=== PATIENT | female | born 1985 | race Caucasian/White ===

== ENCOUNTER 2024-05-08 20:19 | Emergency (ER) | payer SELFPAY ==
[~2024-05-08] VITALS: Ht 154.9 cm; Wt 72.6 kg
[2024-05-08 20:30] VITALS: BP 139/115; PULSE 97; RESP 18; TEMP 98.3; O2SAT 98
--- NOTE | 2024-05-08 20:37 | NUR ---
urine sample @specimen tray, ambulated to lobby after triage
[2024-05-08] MEDS: NACL 0.9% 1,000 ML IV ONE (21:09)
[2024-05-08] MEDS: ONDANSETRON 4 MG/2 ML VIAL IVP ONE ×2 (21:10→22:37)
[2024-05-08] MEDS: MORPHINE SULFATE 4 MG/ML SYR IVP ONE ×2 (21:13→22:15)
[2024-05-08 21:35] LABS: ANION GAP 12.2 (8-16); CALCIUM 9.3 mg/dL (8.5-10.1); CARBON DIOXIDE 25.8 mmol/L (21-32); CREATININE 0.8 mg/dL (0.6-1.3)
[2024-05-08 21:36] LABS: BASOPHILS # (AUTO) 0.1 K/uL (0.00-0.22); BASOPHILS % (AUTO) 0.7 % (0.0-2.0); EOSINOPHILS # (AUTO) 0.8 K/uL (0-0.4); EOSINOPHILS % (AUTO) 9.5 % (0.0-4.0); HEMOGLOBIN 13.4 g/dL (12.0-16.0); LYMPHOCYTES # (AUTO) 2.3 K/uL (2.5-16.5); LYMPHOCYTES % (AUTO) 28.4 % (20.5-51.1); MEAN CORPUSCULAR HEMOGLOBIN 28 pg (27-31); MEAN CORPUSCULAR HGB CONC 33 g/dL (33-37); MEAN CORPUSCULAR VOLUME 86.9 fL (80-94); MONOCYTES # (AUTO) 0.7 K/uL (0.8-1.0); MONOCYTES % (AUTO) 8.4 % (1.7-9.3); NEUTROPHILS # (AUTO) 4.2 K/uL (1.8-7.7); PLATELET COUNT (AUTO) 294 K/uL (140-450); RED BLOOD CELL COUNT(AUTO) 4.72 MIL/uL (4.20-5.40); RED CELL DISTRIBUTION WIDTH 17.5 % (11.6-13.7)
[2024-05-08 21:41] LABS: BILIRUBIN,URINE NEGATIVE (NEGATIVE); BLOOD, URINE 3+ (NEGATIVE); COLOR,URINE YELLOW (YELLOW); LEUKOCYTE ESTERASE ,URINE TRACE (NEGATIVE); NITRITE, URINE POSITIVE (NEGATIVE); PH,URINE 6.5 (5.0-9.0); PROTEIN,URINE NEGATIVE (NEGATIVE); UGLUCOSE NEGATIVE (NEGATIVE); UROBILINOGEN,URINE 0.2 EU/dL (0.2 - 1)
--- NOTE | 2024-05-08 21:44 | NUR ---
2 blankets provided to patient
[2024-05-08 21:54] LABS: APPEARANCE,URINE SLIGHTLY HAZY (CLEAR)
[2024-05-08 21:55] LABS: BACTERIA,URINE 3+ /HPF (None Seen); MUCUS,URINE 2+ /LPF (None Seen)
[2024-05-08 21:56] LABS: RBC,URINE >20 (MANY) /HPF (0-5)
--- NOTE | 2024-05-08 23:18 | NUR ---
PT TAKEN TO CT VIA W/C
[2024-05-09 00:35] VITALS: BP 146/90; PULSE 81; RESP 16; TEMP 98.3; O2SAT 99
[2024-05-09] MEDS ORDERED: ONDA-188 PO (01:07)
[2024-05-09] MEDS ORDERED: ACET500T99 PO (01:07)
[2024-05-09] MEDS ORDERED: CEPH500C16 PO (01:07)
[2024-05-09] MEDS: ACETAMINOPHEN EXTRA STRENGTH 500 MG TAB PO ONE (01:16)
--- NOTE | 2024-05-09 01:45 | NUR ---
Patient discharged with v/s stable. Written and verbal after care instructions given and explained. Patient alert, oriented and verbalized understanding of instructions. Ambulatory with by caregiver. All questions addressed prior to discharge. ID band removed. Patient advised to follow up with PMD. Rx given. Patient educated on indication of medication including possible reaction and side effects. Opportunity to ask questions provided and answered.
[2024-05-14] MEDS ORDERED: NITR100C7 PO (16:30)
== END 2024-05-09 01:45 | disposition home or self-care (01) ==
LOC: MED 20:19
DX: R10.9 Unspecified abdominal pain (principal); R11.2 Nausea with vomiting, unspecified
CPT/HCPCS: 36415; 74176; 80048; 81001; 81025; 85025; 87086; 96361; 96374; 96375; 96376; 99285; J2270; J2405; J7030; 87186